=== PATIENT | male | born 1950 | race Caucasian/White ===

== ENCOUNTER 2017-02-08 10:50 | Day surgery (SDC) | payer OTHER ==
[~2017-02-08] VITALS: Ht 175.3 cm; Wt 95.2 kg
[~2017-02-08 10:50] MED LIST: IBUP800T28 PO; METF500T4 PO; OXYB5TAB PO; Sodium Chloride LOK Flush 10 mL Syringe IV PRN; fentaNYL-PF 50 mCg/mL 2 mL Inj IVPUSH PRN
[2017-02-08 11:58] VITALS: BP 111/61; PULSE 69; RESP 16; O2SAT 98
[2017-02-08] MEDS: 0.9% Sodium Chloride 1,000 ML IV PRN ×2 (12:06→12:56)
[2017-02-08 13:18] VITALS: BP 104/67; PULSE 66; RESP 16; O2SAT 95
--- NOTE | 2017-02-08 13:21 | PCM.ENDCOL ---
Colonoscopy Date of Service: Feb 08, 2017 Physician Derick Burgos MD Pre Procedure Diagnosis: Screening personal history of colon polyp Post Procedure Dx & Findings: Hemorrhoids diverticulosis Procedure Colonoscopy PROCEDURE IN DETAIL: Prep adequate Withdrawal time 11 minutes After unremarkable rectal examination the Olympus video colonoscope was inserted patient's anal canal and was advanced to cecum. Landmarks were identified including the ileocecal valve and appendiceal orifice. Scope was withdrawn systematically. Visualized colonic mucosa showed healthy shiny mucosa with normal healthy-appearing vasculature. In the sigmoid colon, there were several diverticula medium size. In the rectum retroflexion was done which showed hemorrhoids. Anal canal was inspected carefully on the way out and hemorrhoids noted. Impression Diverticulosis Hemorrhoids History of colon polyp Recommendation Repeat colonoscopy 5 years Diverticular diet Presedation Assessment Risks and Benefits Informed consent was obtained from the patient after all risks and benefits including but not limited to drug reaction, infection, pain, bleeding, perforation, as well as alternatives were discussed. Patient monitoring Continuous pulse oximetry, cardiac monitoring, blood pressure monitoring, IV access, and oxygen at 2L per nasal cannula. Periprocedural Fentanyl: Fentanyl 75mcg Incrementally Midazolam: Midazolam 3mg Incrementally Complications There were no periprocedural complications identified. Post Procedure Plan Post Procedure Recommendations 1. Restrict activities today. 2. Resume normal activities in the morning. 3. Resume medications. 4. Patient informed of normal post procedure side effects as bloating, drowsiness, blood streaking in the stool. 5. average risk CRCS. If colon polyps come back as: -Hyperplastic- can repeat colonoscopy in 10 years -Tubular adenoma- repeat colonoscopy in 5 years -Tubulovillous/villous adenoma- repeat colonoscopy in 3 years -If any dysplasia- return to clinic as soon as possible 6. Please don't hesitate to call me with any questions. Derick Burgos MD Feb 08, 2017 13:21
[2017-02-08 13:28] VITALS: BP 100/71; PULSE 75; RESP 16; O2SAT 99
[2017-02-08 13:37] VITALS: BP 102/77; PULSE 73; RESP 16; O2SAT 98
== END 2017-02-08 23:59 | disposition home or self-care (01) ==
LOC: END 10:50
PROVIDERS: ATTEND Internal Medicine
DX: Z12.11 Encounter for screening for malignant neoplasm of colon (principal); K57.30 Diverticulosis of large intestine without perforation or abscess without bleeding; K64.8 Other hemorrhoids; E11.9 Type 2 diabetes mellitus without complications; Z79.84 Long term (current) use of oral hypoglycemic drugs
CPT/HCPCS: 45378; G0500; J2250; J3010; J7030